=== PATIENT | male | born 1970 | race African-American/Black ===

== ENCOUNTER 2016-07-04 13:13 | Emergency (ER) | payer SELFPAY ==
[~2016-07-04] VITALS: Ht 175.3 cm; Wt 90.0 kg
[2016-07-04 13:16] VITALS: BP 244/135; PULSE 66; RESP 22; TEMP 98.4; O2SAT 96
[2016-07-04] MEDS ORDERED: HYDROmorphone HCL PF 1 MG/ML VIAL IV PUSH ONE ×2 (13:30→14:30)
[2016-07-04] MEDS ORDERED: ONDANSETRON HCL 4 MG/2 ML VIAL IV PUSH ONE (13:30)
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
[2016-07-04 13:41] VITALS: BP 186/111; PULSE 84; RESP 25; O2SAT 100
[2016-07-04] MEDS ORDERED: TETANUS/DIPHTHERIA TOXOID ADULT 0.5 ML VIAL IM ONE (13:45)
[2016-07-04] MEDS ORDERED: CLINDAMYCIN INJ 600 MG in SODIUM CHLORIDE 0.9% INJ 100 ML IV ONE (13:45)
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
[2016-07-04] MEDS ORDERED: ROBA750T PO (14:33)
[2016-07-04] MEDS ORDERED: HYDR-3366 PO (14:33)
[2016-07-04 15:44] VITALS: BP 187/56
== END 2016-07-04 15:46 | disposition home or self-care (01) ==
LOC: NEPE 13:13
DX: S32.591A Other specified fracture of right pubis, initial encounter for closed fracture (principal); S61.232A Puncture wound without foreign body of right middle finger without damage to nail, initial encounter; S80.211A Abrasion, right knee, initial encounter; S60.512A Abrasion of left hand, initial encounter; S60.511A Abrasion of right hand, initial encounter; V28.4XXA Motorcycle driver injured in noncollision transport accident in traffic accident, initial encounter; Z23 Encounter for immunization
CPT/HCPCS: 12001; 71010; 72170; 73590; 90471; 90714; 96374; 96375; 96376; 99284; E0113; J1170; J2405